=== PATIENT | male | born 1995 | race Asian ===

== ENCOUNTER 2016-10-23 22:02 | Emergency (ER) | payer OTHER ==
[~2016-10-23] VITALS: Ht 170.2 cm; Wt 60.5 kg
[2016-10-23 22:17] VITALS: BP 119/59; PULSE 76; TEMP 36.7; O2SAT 97; Ht 170.2 cm; Wt 60.5 kg
--- NOTE | 2016-10-23 22:33 | EMERGENCY ROOM VISIT NOTE ---
ED Visit Note First contact with patient: 22:21 CHIEF COMPLAINT: Toe injury HISTORY OF PRESENT ILLNESS: This 20-year-old male patient presents to the emergency department ambulatory complaining of a dark colored spot on the plantar aspect of the left great toe. The patient does not recall any specific injury but when questioned further he states he remembers a boot rubbing and causing toe pain a few weeks ago. There is no redness, warmth, or discharge. The patient has taken nothing for their symptoms. The patient has not had previous problems with this toe. No other complaints. He denies any pain. REVIEW OF SYSTEMS: A 6 system review of systems was completed with positives and pertinent negatives listed in the HPI. ALLERGIES: No known drug allergies MEDICATIONS: None PMH: None SOCIAL HISTORY: The patient lives locally PHYSICAL EXAM: Vital Signs: Reviewed Nurse's notes, vital signs stable. GENERAL : This is a 20-year-old male, in no acute distress, but appears in pain, well- developed, well-nourished. SKIN: There is a dark, small area to the plantar aspect of the left great toe without erythema, redness, or warmth. There is no ecchymosis. There is no active bleeding and no laceration. Capillary refill less than two seconds. MUSCULOSKELETAL: The toe toe is tender to not palpation . There is no limitation of motion due to tenderness. There is no visual deformity. The ankle joint is not swollen or tender. The foot is not swollen or tender. NEURO: Patient was alert and oriented to person place and time. Normal sensation to light and sharp touch. EMERGENCY DEPARTMENT COURSE: I examined the patient. The patient appears to have a small blister and skin with a small amount of dried blood beneath it. I did clean the area with alcohol and gently unroofed the skin. There is no obvious foreign body. There is no fluctuant or purulent drainage. He should try a pumice stone to help remove the skin. The patient was discharged home in stable condition. Vital Signs Date Time Temp Pulse Resp B/P Pulse Ox O2 Delivery O2 Flow Rate FiO2 10/23/16 22:17 36.7 76 16 119/59 97 Room Air Departure Information Impression Primary Impression: Blister of toe Dispostion Home / Self-Care Condition GOOD Referrals No Doctor, Assigned (PCP) Patient Instructions My [facility] Additional Instructions Try using a pumice stone when in the shower to gently remove the skin. Apply a moisturizer. Return with any redness, swelling, warmth, drainage of pus Problem Qualifiers Primary Impression: Blister of toe Encounter type: initial encounter Laterality: left Qualified Codes: S90.425A - Blister (nonthermal), left lesser toe(s), initial encounter
== END 2016-10-23 22:45 | disposition home or self-care (01) ==
LOC: C.EDB 22:06
DX: S90.422A Blister (nonthermal), left great toe, initial encounter (principal); M79.672 Pain in left foot; X58.XXXA Exposure to other specified factors, initial encounter; Y92.89 Other specified places as the place of occurrence of the external cause